=== PATIENT | male | born 1965 | race Caucasian/White ===

== ENCOUNTER 2018-05-23 21:00 | Emergency (ER) | payer OTHER ==
[~2018-05-23] VITALS: Ht 180.3 cm; Wt 83.9 kg
[2018-05-23] MEDS ORDERED: LIPITOR40 MG (21:07)
[2018-05-23] MEDS ORDERED: HUMAPEN LUXURA1 EACH (21:08)
[2018-05-23] MEDS ORDERED: SINGULAIR4 M1 (21:08)
[2018-05-23] MEDS ORDERED: AMITIZA8 MCG (21:08)
[2018-05-23] MEDS ORDERED: ZYRTEC10 M3 (21:09)
[2018-05-23] MEDS ORDERED: ZANTAC150 M3 (21:11)
[2018-05-23] MEDS ORDERED: NEURONTIN300 MG (21:11)
[2018-05-23] MEDS ORDERED: OMEPRAZOLE40 MG (21:12)
[2018-05-23] MEDS ORDERED: MELOXICAM15 MG (21:12)
== END 2018-05-23 22:21 | disposition home or self-care (01) ==
LOC: ER 21:00
DX: L03.113 Cellulitis of right upper limb (principal)